=== PATIENT | male | born 1935 | race Caucasian/White ===

== ENCOUNTER 2019-01-23 08:28 | Day surgery (SDC) | payer OTHER | END 2019-01-23 11:20 | disposition home or self-care (01) | LOC: FASU 08:28 ==

== ENCOUNTER 2020-01-29 07:12 | Day surgery (SDC) | payer OTHER ==
[2020-01-23 17:33] VITALS: BMI 24.7
--- OUTSIDE RECORDS SUMMARY | 2020-01-29 07:16 | XMS ---
:1935 Author Organization [facility] Support Name Relationship Address Phone RE Unavailable Unavailable Unavailable [facility] [address] [place] [address] Re-disclosure Warning The records that you are about to access may contain information from federally- assisted alcohol or drug abuse programs. If such information is present, then the following federally mandated warning applies: This information has been disclosed to you from records protected by federal confidentiality rules (42 CFR part 2). The federal rules prohibit you from making any further disclosure of this information unless further disclosure is expressly permitted by the written consent of the person to whom it pertains or as otherwise permitted by 42 CFR part 2. A general authorization for the release of medical or other information is NOT sufficient for this purpose. The Federal rules restrict any use of the information to criminally investigate or prosecute any alcohol or drug abuse patient.The records that you are about to access may contain highly sensitive health information, the redisclosure of which is protected by Article 27-F of the [facility] Public Health law. If you continue you may haveaccess to information: Regarding HIV / AIDS; Provided by facilities licensed or operated by the [facility] Office of Mental Health; or Provided by the [facility] Office for People With Developmental Disabilities. If such information is present, then the following [facility] mandated warning applies: This information has been disclosed to you from confidential records which are protected by state law. State law prohibits you from making any further disclosure of this information without the specific written consent of the person to whom it pertains, or as otherwise permitted by law. Any unauthorized further disclosure in violation of state law may result in a fine or penitentiary sentence or both. A general authorization for the release of medical or other information is NOT sufficient authorization for further disclosure. Insurance Providers Payer name Policy type Policy ID Covered Covered republican's Policy P glen / Coverage republican ID relationship to [facility] ormation type gallo [employer] [id number] HEALTHCARE (MEDICARE) Results ID Date Data Source [id number] 01/24/2020 02:04:00 PM EDT [facility] Name Value Range Interpretation Description Data Sup porting Code Source(s) Document(s ) SARS [facility] coronavirus 2 RNA This lab was ordered by JOSE MATHEW and reported by [facility]. Procedure
[2020-01-29] MEDS ORDERED: ERYTHROMYCIN 0.5% OPHTHALMIC OINTMENT 3.5 GM TUBE ONE (10:27)
[2020-01-29] MEDS ORDERED: LIDOCAINE 1%/EPI 1:100000 (20 ML MULTI DOSE VIAL) ONE (10:27)
[2020-01-29] MEDS ORDERED: PROPOFOL 20 ML ONE (10:32)
[2020-01-29] MEDS ORDERED: MIDAZOLAM HCL 2 MG/2 ML SINGLE DOSE VIAL ONE (10:32)
[2020-01-29] MEDS ORDERED: ceFAZolin SODIUM 1 GM VIAL ONE (10:56)
--- NOTE | 2020-01-29 12:48 | OP ---
DATE OF OPERATION: 01/29/2020 PREOPERATIVE DIAGNOSIS: Entropion right lower lid. POSTOPERATIVE DIAGNOSIS: Entropion right lower lid. PROCEDURE: 1. Lateral tarsal strip right lower lid. 2. Transconjunctival conjunctivoplasty with application of retractors right lower lid. 3. Orbicularis flap excision right lower lid. SURGEON: Jose D Schwab MD ANESTHESIA: Local with sedation. COMPLICATIONS: None. ESTIMATED BLOOD LOSS: 2 to 3 mL. OPERATIVE REPORT: Patient brought to the operating room, placed on the operating room table. Vital signs monitored by Anesthesia. Tetracaine was placed in both eyes. Lateral canthal line was marked for right lateral canthus. Timeout was performed. Intravenous sedation was administered and a 6 mL mixture of 2% Xylocaine with 1:100,000 epinephrine and 0.5% Marcaine was injected in the right lateral canthus down to periosteum and subconjunctivally below the tarsus across the eyelid for a total of 3 to 4 mL. Patient was prepped and draped in the usual sterile fashion exposing both eyes. Silk 4-0 traction stitch was passed through the lower lid margin for traction and the lateral canthal incision was made with a 15-blade, carried down to the orbital rim with a Lavaca needle. The inferior lourdes of the lateral canthal tendon was from the rim with sharp dissection. Lid was overlapped, marked with sterile marking pen, divided into an anterior and posterior level and the anterior level was excised and the posterior level was denuded of epithelium posteriorly and superiorly. Double-arm 5-0 Prolene was used, reinforced with two 6-0 Vicryl lasso sutures to reattach the tarsal strip to the orbital rim and internally at the junction with the superior lourdes. This was not tied. The lid was everted over a Desmarres retractor. Transconjunctival incision was made with a Lavaca needle down to the post orbicularis surface. Septum and the conjunctival retractors were released from the post orbicularis surface. The tarsus was then from the pretarsal orbicularis. A partial-thickness orbicularis flap was excised at the inferior tarsal border with small amount of cautery to create a fibrous adhesion and then the retractors were plicated to the anterior inferior tarsus with four 6-0 Vicryl sutures in buried fashion across the eyelid. The lateral canthotomy was performed with a 5-0 chromic to the dyson line of the upper and lower lid. Prolene was now tied, reattaching the tarsal strip to the orbital rim. The excess tarsus strip was tied over the Prolene with a 6-0 Vicryl. A 6-0 chromic was then used to close the muscular layer underneath the lateral canthal incision and the skin was closed with interrupted 6-0 plain suture. Erythromycin ointment was placed in the eye and on the sutures of the lateral canthus. The traction stitch was removed and the patient was taken to the recovery room in stable condition. JOSE D SCHWAB M.D. [id number]
[2020-01-29 13:10] VITALS: PULSE 52; TEMP 97.6
[2020-01-30] MEDS ORDERED: LOCK ITEM NR ONE (07:46)
[2020-01-30 17:19] VITALS: BP 147/77
== END 2020-01-29 14:05 | disposition home or self-care (01) ==
LOC: FASU 07:12
PROVIDERS: ATTEND Ophthalmology
PROC: 08BN0ZZ Excision of Right Upper Eyelid, Open Approach (ICD-10-PCS; principal; 2020-01-29 11:18)
DX: H02.032 Senile entropion of right lower eyelid (principal)
CPT/HCPCS: 94760

== ENCOUNTER 2020-12-16 09:13 | Day surgery (SDC) | payer OTHER ==
[2020-12-04 13:36] VITALS: BMI 24.3
[2020-12-16] MEDS ORDERED: OFLOXACIN 0.3% OPHTHALMIC SOLUTION 5 ML BOTTLE ONE (09:31)
[2020-12-16] MEDS ORDERED: PHENYLEPHRINE 2.5% OPHTH SOLN 15 ML BOTTLE ONE (09:31)
[2020-12-16] MEDS ORDERED: KETOROLAC TROMETHAMINE 0.5% EYE DROP 1 DROP DROPS ONE (09:31)
[2020-12-16] MEDS ORDERED: CYCLOPENTOLATE HCL 1% OPHTH SOLN 2 ML BOTTLE ONE (09:31)
[2020-12-16] MEDS ORDERED: TROPICAMIDE 1% OPHTH SOLN 15 ML BOTTLE ONE (09:32)
[2020-12-16] MEDS: TROPICAMIDE 1% OPHTH SOLN 15 ML BOTTLE OD SCH ×5 (09:55→10:15)
[2020-12-16] MEDS: CYCLOPENTOLATE HCL 1% OPHTH SOLN 2 ML BOTTLE OD SCH ×5 (09:55→10:15)
[2020-12-16] MEDS: PHENYLEPHRINE 2.5% OPHTH SOLN 15 ML BOTTLE OD SCH ×5 (09:55→10:15)
[2020-12-16] MEDS: OFLOXACIN 0.3% OPHTHALMIC SOLUTION 5 ML BOTTLE OD SCH ×5 (09:55→10:15)
[2020-12-16] MEDS: KETOROLAC TROMETHAMINE 0.5% EYE DROP 1 DROP DROPS OD SCH ×5 (09:55→10:15)
[2020-12-16] MEDS ORDERED: TETRACAINE 0.5% OPHTH SOLN 2 ML BOTTLE ONE (11:00)
[2020-12-16] MEDS ORDERED: EPI-SHUGARCAINE (EPINEPHRINE 0.025% & LIDOCAINE-PF 0.75%) 4ML ONE (11:00)
[2020-12-16] MEDS ORDERED: ACETYLCHOLINE 1:100 INTRA-OCUL 20 MG/2 ML KIT ONE (11:00)
[2020-12-16] MEDS ORDERED: EPINEPHrine/PF 1 MG/1 ML (1:1,000) AMPULE ONE (11:00)
[2020-12-16] MEDS ORDERED: POVIDONE-IODINE 5% OPHTHALMIC PREP 30 ML SOLUTION ONE (11:00)
[2020-12-16] MEDS ORDERED: NEO/POLYMYX B SULF/DEXAMETH OPHTHALMIC 5ML BOTTLE ONE (11:00)
[2020-12-16] MEDS ORDERED: BACITRACIN/POLYMYXIN OPH OINT 3.5 GM TUBE ONE (11:00)
[2020-12-16] MEDS ORDERED: BETAXOLOL HCL 0.25% OPHTHALMIC 10 ML DROPSBTL ONE (11:00)
[2020-12-16] MEDS ORDERED: MIDAZOLAM HCL 2 MG/2 ML SINGLE DOSE VIAL ONE (11:11)
[2020-12-16] MEDS ORDERED: ACETAMINOPHEN 325 MG TABLET (FP) PO PRN (11:54)
[2020-12-16 12:13] VITALS: TEMP 97.6
[2020-12-16 13:19] VITALS: BP 117/74; PULSE 58
== END 2020-12-16 13:05 | disposition home or self-care (01) ==
LOC: FASU 09:13
PROVIDERS: ATTEND Ophthalmology
PROC: 08RJ3JZ Replacement of Right Lens with Synthetic Substitute, Percutaneous Approach (ICD-10-PCS; principal; 2020-12-16 11:33)
DX: H26.9 Unspecified cataract (principal)